=== PATIENT | male | born 1965 | race Caucasian/White ===

== ENCOUNTER 2019-06-21 11:50 | Emergency (ER) | payer OTHER, SELFPAY ==
[2019-06-21 11:52] VITALS: BP 166/99; PULSE 72; RESP 18; TEMP 36.4; O2SAT 97; BMI 43.9
--- NOTE | 2019-06-21 12:23 | EKG12_ITS ---
Test Reason : LEG PAIN Blood Pressure : / mmHG Vent. Rate : 066 BPM Atrial Rate : 066 BPM P-R Int : 170 ms QRS Dur : 096 ms QT Int : 382 ms P-R-T Axes : 035 029 025 degrees QTc Int : 400 ms Sinus rhythm with occasional Premature ventricular complexes Otherwise normal ECG Confirmed by IJEOMA DOMINGUEZ, NEGRITA ([id number]), proposal editor BRITTNY WILSON ([id number]) on 06/24/2019 11:33:32 AM Referred By: DIOR Confirmed By:NEGRITA RAPHAEL MD
--- NOTE | 2019-06-21 12:23 | RAD_ITS ---
STUDY: X-RAY CHEST REASON FOR EXAM: Male, 53 years old. Bilateral leg edema, shortness of breath TECHNIQUE: PA and lateral views of the chest. COMPARISON: None. FINDINGS: EKG leads project over the chest. Hyperexpansion of the lungs with relative hyperlucency of the left upper lung field. No airspace consolidation. There is no demonstrated pleural abnormality. Normal size heart. Normal mediastinum and artemio. Mild vascular congestion and indistinct central pulmonary vessels. Normal visualized aortic arch and descending thoracic aorta. There are diffuse degenerative changes of the visualized thoracic spine. Normal visualized ribs, clavicles, and shoulders. There is no demonstrated abnormality of the visualized soft tissue structures of the upper abdomen. RAD/Chest PA and Lateral IMPRESSION: 1. Mild vascular congestion could suggest fluid overload/early CHF. 2. Hyperinflation with hyperlucency of the left upper lung, query COPD. Electronically Signed: Kong Adams MD (Brooks) at 13:17 EST , Service support ,
[2019-06-21 12:45] LABS: Absolute Lymphocyte Count 2.14 X10^3/uL (0.83-4.51); Absolute Neutrophil Count 6.2 X10^3/uL (2.0-7.7); Basophil# 0.04 X10^3/uL; Basophil% 0.4 % (0-1); Eosinophil# 0.15 X10^3/uL; Eosinophils% 1.6 % (0-5); Hematocrit 42.3 % (40-54); Hemoglobin 14.5 g/dL (13.0-16.5); Lymphocyte # 2.14 X10^3/ul (4.0); Lymphocyte % 22.1 % (19-41); Mean Corp Hgb Conc 34.3 g/dL (32-36); Mean Corpuscular Hgb 32.4 pg (27.0-32.0); Mean Corpuscular Volume 94.6 fL (80-94); Mean Platelet Vol. 10.7 fl (6.2-12.0); Monocyte# 1.07 X10^3/uL; Monocyte% 11.1 % (0-10); NRBC Flagged by Analyzer 0 % (0-5); Neutrophil # 6.17 X10^3/uL (2.7-7.7); Neutrophil % 63.8 % (47-70); Platelet Count 158 K/mm3 (150-450); RBC Distribution Width CV 14.2 % (11.6-14.6); RBC Distribution Width SD 49.4 fl (35.1-43.9); Red Blood Count 4.47 M/mm3 (4.6-6.2); White Blood Count 9.7 K/mm3 (4.4-11.0)
[2019-06-21 12:47] VITALS: BP 124/71; PULSE 61; RESP 95; O2SAT 19
[2019-06-21 12:56] LABS: Anion Gap 7 (5-15); BUN 17 mg/dL (7-18); BUN/Creat Ratio 10.3 RATIO (10-20); Calcium,Total 9.1 mg/dL (8.5-10.1); Chloride 105 mmol/L (98-107); Creatinine, Serum 1.65 mg/dL (0.70-1.30); EST Glomerular Filtration Rate 47 mL/min (>60); Est Glom Filt Rate - Afr Amer 56 mL/min (>60); Estimated Creatinine Clearance 51.78 ml/min; Glucose 110 mg/dL (74-106); Potassium 4.2 mmol/L (3.5-5.1); Sodium Level 140 mmol/L (136-145)
--- NOTE | 2019-06-21 13:28 | ED.VIS.GEN ---
History of Present Illness Chief Complaint: Lower Extremity Injury Detail of Chief Complaint: Bilateral lower extremity edema Informant: Patient Onset: Weeks Context: Gradual Onset Current Severity: Moderate Maximum Severity: Moderate Narrative: Patient presents with swelling to both lower extremities over the past month or so. Patient does state it seemed to start with the right leg and that leg seems to be affected worse. He was seen at urgent care but they were concerned about either his kidney function or possible CHF and sent him to the emergency room. Patient states he has noted some mild redness to his right leg recently. He has not had a fever or chills. He has had no open wounds. - Past Medical History (1) Hypertension Status: Chronic (2) High cholesterol Status: Chronic (3) Asthma Status: Chronic (4) Diabetes Status: Chronic Past Medical History - Allergies and Home Meds Allergies/Adverse Reactions: Allergies Penicillins [PCN] Allergy (Verified 06/21/19 11:52) Other Primary Care Physician: Paolo Altman MD [Primary Care Provider] - 1-2 Weeks Prior records reviewed: Yes Past Medical History: - - Reviewed Smoking Status: Never smoker Review of Systems General: Denies: Chills, Fever Eyes: Denies: Visual changes - bilaterally ENT: Denies: Bilateral ear pain Cardiovascular: Denies: Chest pain, Palpitations Respiratory: Denies: Dyspnea, Cough Gastrointestinal: Denies: Abdominal pain, Nausea, Vomiting, Diarrhea Musculoskeletal: Reports: Swelling. Denies: Extremity Pain Skin: Denies: Rash Neurological: Denies: Headache Hematologic: Denies: Easy bruising, Easy bleeding Allergy: Denies: Uticaria Physical Exam Vital Signs/Narrative: Vital Signs Temp Pulse Resp BP Pulse Ox 06/21/19 12:47 61 95 H 124/71 H 19 06/21/19 11:52 97.5 F L 72 18 166/99 H 97 Inital Vital Signs reviewed: Yes General: Well nourished, Well developed Head: Normocephalic ENT: Moist mucous membranes Neck: Supple Cardiovascular: Regular rate, Regular rhythm Respiratory: No distress, CTA bilaterally Abdomen: Soft, Nontender, Nondistended Extremities: - - 3-4+ edema bilateral lower extremities. There is some mild skin erythema to the right leg but no warmth to touch. This is more consistent with lymphedema changes. Neurological: Alert, Oriented x3 Psychological: Normal affect Diagnostic/Tx/Re-eval Impressions Chest X-Ray 06/21/19 12:23 IMPRESSION: 1. Mild vascular congestion could suggest fluid overload/early CHF. 2. Hyperinflation with hyperlucency of the left upper lung, query COPD. Electronically Signed: Kong Adams MD (Brooks) at 13:17 EST , Service support , 06/21/19 12:23 Chest PA and Lateral [RAD] Stat Laboratory Results 06/21/19 06/21/19 12:35 12:35 WBC 9.7 RBC 4.47 L Hgb 14.5 Hct 42.3 MCV 94.6 H MCH 32.4 H MCHC 34.3 RDW Std Deviation 49.4 H RDW Coeff of Gus 14.2 Plt Count 158 MPV 10.7 Immature Gran % (Auto) 1.000 H Neut % (Auto) 63.8 Lymph % (Auto) 22.1 [place] % (Auto) 11.1 H Eos % (Auto) 1.6 Baso % (Auto) 0.4 Absolute Neuts (auto) 6.2 Absolute Lymphs (auto) 2.14 Nucleated RBC % 0 Sodium 140 Potassium 4.2 Chloride 105 Carbon Dioxide 28.0 Anion Gap 7 BUN 17 Creatinine 1.65 H Estim Creat Clear Calc 51.78 Est GFR (MDRD) Af Amer 56 L Est GFR (MDRD) Non-Af 47 L BUN/Creatinine Ratio 10.3 Glucose 110 H Calcium 9.1 - EKG Initial EKG Interpretation: Sinus Rhythm - Sinus at 66 with single PVC. No acute ST change. - Medical Decision Making Test results are discussed with the patient. His creatinine is elevated, but was 1.78 in November. This appears to be his baseline. I was unable to obtain a BTM P as the machine is down this weekend. I will treat the patient with a 5-day course of Lasix. Ortiz wraps were applied to both legs with light compression. ED Disposition - Plan for ED Patient: Disposition: Home or Assisted Living Diagnosis: Edema Instructions: Lymphedema Prescriptions: Furosemide [Lasix] 40 mg PO DAILY #5 tab Prescription Printed Referrals: Paolo Altman MD [Primary Care Provider] - 1-2 Weeks
[2019-06-21 13:42] VITALS: BP 128/78; PULSE 62; RESP 18
== END 2019-06-21 13:44 | disposition home or self-care (01) ==
PROVIDERS: Emergency Provider Emergency Medicine; Family Provider Family Medicine; PCP Family Medicine
DX: R60.0 Localized edema (principal); I10 Essential (primary) hypertension; J45.909 Unspecified asthma, uncomplicated; E11.9 Type 2 diabetes mellitus without complications; Z79.84 Long term (current) use of oral hypoglycemic drugs
CPT/HCPCS: 71046; 80048; 85025; 93005; 99283; A4216

== ENCOUNTER 2020-06-28 | Emergency (ER) | payer OTHER, SELFPAY ==
[2020-06-28] VITALS: BP 164/121; PULSE 67; RESP 30; TEMP 36; O2SAT 95; BMI 39.9
--- NOTE | 2020-06-28 00:12 | CT_ITS ---
STUDY: CT ABDOMEN AND PELVIS WITH CONTRAST REASON FOR EXAM: Male, 54 years old. LOWER ABD PAIN WITH DIARRHEA X 2 DAYS, ABD PAIN INCREASING, + COVID, HX DIAB, KD, HTN RADIATION DOSAGE (If Supplied By Facility): CTDIvol = ( 25.66 ) mGy, DLP = ( 2555.30 ) mGycm TECHNIQUE: Transaxial images were obtained from the dome of the diaphragm to the symphysis pubis without oral contrast. Oral and amp; IV Gastrografin and amp; 100mL Isovue-370 was administered. Sagittal and coronal images were reconstructed. Individualized dose optimization techniques were used for this CT. COMPARISON: June 21, 2019 chest x-ray FINDINGS: There are visualized multifocal patchy groundglass opacities in the visualized lung bases. The visualized portions of the heart are within normal limits. The liver is mildly enlarged fatty infiltrated. Within the left hepatic lobe there is a low attenuating cystic structure measuring 1.3 cm. Normal gallbladder and extrahepatic biliary system. There is [id number] splenomegaly. Normal pancreas. Normal bilateral adrenal glands. There are small cysts in the right kidney the largest of which measures 2.7 x 2.6 cm with benign features. There are left renal cyst at least 2 the largest of which is in the lower pole measuring 5.7 x 5.9 cm with Hounsfield units in the range of simple fluid. Normal visualized stomach. Normal small intestine. There are air-fluid levels within the colon with minimal distention. There is diverticulosis without diverticulitis. The appendix is visualized and appears normal. The aorta is partially calcified. Normal inferior vena cava. Normal retroperitoneum. Normal urinary bladder. There are prostatic calcifications. Normal abdominal wall. There are diffuse degenerative changes of the visualized lumbar spine. CT/Abdomen/Pelvis WITH Contrast IMPRESSION: Multifocal patchy groundglass opacities within the lung bases highly consistent with a pattern typical of Covid pneumonia. Air-fluid levels within the colon compatible with the diarrhea-type illness gastroenteritis. No obstruction. Diverticulosis no diverticulitis. No evidence of appendicitis. Bilateral benign-appearing renal cysts. Benign-appearing hepatic cysts mild hepatic enlargement. Mild splenomegaly. Evidence of old granulomatous disease. Electronically Signed: Rosemary Liu MD at 2:33 EST Tel , Service support ,
--- NOTE | 2020-06-28 00:12 | ED.VISSUMM ---
- ER Visit Summary Date of Service: 06/28/20 Chief Complaint: [Abdominal pain] History of Present Illness: The patient is a 54 M resents to the emergency department with complaint of abdominal pain that started 2 days ago. Patient states the pains been continuous and describes in the lower abdomen. He rates it currently an 8 out of 10. Pain is dull and achy. He has had no nausea or vomiting. He has had some mild diarrhea. Denies any blood in his stool or black tarry stool. Denies any chest pain. He is not had a fever since being diagnosed with COVID-19 on 18 June. Patient states that he waited a couple of days after diagnosis and then was hospitalized at [facility] for 5 days. Patient does describe some shortness of breath with activity however that seems to be chronic. Minimal cough. Patient's had no prior abdominal surgeries. He does have history of asthma, high cholesterol, diabetes, and hypertension. [Patient denies urinary symptoms.] Patient states that while admitted to the hospital he was on antibiotics but did not get sent home on antibiotics. Physical Examination: [HEENT-PERRLA, EOMI. Cranial nerves II through XII grossly intact. TMs clear. Mucous membranes moist. No adenopathy. Cardiovascular-regular rate and rhythm without murmur or ectopy Lungs-clear to auscultation, chest wall stable without crepitus or subcu emphysema Abdomen-normoactive bowel sounds, soft. Patient has tenderness palpation over the right lower quadrant as well as the suprapubic region and left lower quadrant. There is no rebound, rigidity, or peritoneal signs.. Extremities-intact ?4, normal range of motion, normal pulses, atraumatic] Test Results: [CBC with differential showed a white count 13.1, hemoglobin 16, hematocrit 49, platelets 229. Chemistries unremarkable. BUN was [address] scan of the abdomen pelvis with IV and p.o. contrast obtained showed Covid like pneumonia in the bases of both lungs and patient had fluid throughout the colon consistent with diarrheal type illness. Patient unable to give a stool sample in the department. Urinalysis obtained] Emergency Department Course and Treatment: [The line established. Patient was given morphine and Zofran. He felt improved.] Treatment Plan: [Patient will be given a prescription to bring a stool sample in for culture and C. difficile.] Disposition: [Discharged home in stable condition] Impression: [COVID-19 illness Abdominal pain Diarrhea] This note was generated with [employer] dictation software. It may contain incorrect words, spelling, and punctuation that were not noted in review of the chart prior to signing ED Disposition - Plan for ED Patient: Referrals: Paolo Altman MD [Primary Care Provider] -
[2020-06-28 00:46] VITALS: BP 141/88; PULSE 77; RESP 19; TEMP 36; O2SAT 95
[2020-06-28] MEDS: 0.9% Normal Saline 1,000 ML 125 ML IV (00:53)
[2020-06-28] MEDS: Ondansetron 4 MG/2 ML Vial IV (00:54)
[2020-06-28 01:03] VITALS: BP 146/91; PULSE 85; RESP 18; TEMP 36.7; O2SAT 97
[2020-06-28 01:04] LABS: Hematocrit 49.6 % (40-54); Hemoglobin 16.4 g/dL (13.0-16.5); Mean Corp Hgb Conc 33.1 g/dL (32-36); Mean Corpuscular Hgb 30.7 pg (27.0-32.0); Mean Corpuscular Volume 92.7 fL (80-94); Mean Platelet Vol. 11.2 fl (6.2-12.0); POSITIVE COUNT YES; POSITIVE DIFFERENTIAL YES; POSITIVE MORPHOLOGY YES; Platelet Count 229 K/mm3 (150-450); RBC Distribution Width CV 14.1 % (11.6-14.6); RBC Distribution Width SD 47.9 fl (35.1-43.9); Red Blood Count 5.35 M/mm3 (4.6-6.2); White Blood Count 13.1 K/mm3 (4.4-11.0)
[2020-06-28 01:07] LABS: Differential Indicated MANUAL DIFF
[2020-06-28 01:21] LABS: ALB/GLOB Ratio 0.8 RATIO (0.9-2.4); AST(SGOT) 23 U/L (15-37); Alanine Aminotransfer ALT/SGPT 53 U/L (16-61); Alkaline Phosphatase 72 U/L (45-117); Anion Gap 9 (5-15); BUN 21 mg/dL (7-18); BUN/Creat Ratio 12.6 RATIO (10-20); Calcium,Total 8.8 mg/dL (8.5-10.1); Chloride 108 mmol/L (98-107); Creatinine, Serum 1.67 mg/dL (0.70-1.30); EST Glomerular Filtration Rate 46 mL/min (>60); Est Glom Filt Rate - Afr Amer 55 mL/min (>60); Estimated Creatinine Clearance 50.57 ml/min; Glucose 105 mg/dL (74-106); Potassium 3.7 mmol/L (3.5-5.1); Sodium Level 143 mmol/L (136-145)
[2020-06-28 01:24] LABS: Lymphocyte 13 % (19-41); Metamyelocyte 5 % (0-1); Monocyte 12 % (0-10); Neutrophil-Band 4 % (0-5); Neutrophil-Segmented 66 % (47-70); Total Cells Counted 100 (MANUAL DIFF)
[2020-06-28 01:25] LABS: Absolute Neutrophil Count 9.2 X10^3/uL (2.0-7.7); Platelet Estimate ADEQUATE (ADEQ); Red Cell Morphology NORM C+C NORMAL (NORM C&C)
[2020-06-28 01:30] LABS: Lactic Acid 1.5 mmol/L (0.4-1.9)
[2020-06-28 02:03] VITALS: BP 169/111; PULSE 79; RESP 17; TEMP 36.8; O2SAT 92
[2020-06-28] MEDS: Morphine 4 MG/ML Syringe IV (02:48)
[2020-06-28 03:00] LABS: Bacteria 0 SEEN /hpf (None Seen); Mucous, Urine 0 SEEN /hpf (<or=2+); Squamous Epithelial Cells - UA 0 SEEN /hpf (0-5); White Blood Cells 0 SEEN /hpf (0-5)
[2020-06-28 03:03] LABS: Color, Urine Yellow (Yellow); Glucose, Dipstick Normal (Normal); Ketone-Dipstick Negative (Negative); Leukocyte Esterase-Dipstick Negative /ul (Negative); Nitrite-Dipstick Negative (Negative); Occult Blood-Urine 10 /ul (Negative); Protein-Dipstick 30 mg/dl (Negative); Urine Bilirubin Dipstick Negative (Negative); Urine Clarity Clear (Clear); Urine Urobilinogen Normal (Normal)
--- NOTE | 2020-06-28 03:06 | ED.DEP ---
ED Disposition - Plan for ED Patient: Instructions: ED Unknown Causes of Abdominal Pain Male, ED Viral Syndrome Prescriptions: Hydrocodone Bitart/Apap 5-325 [Schurz 5MG-325MG] 1 tab PO Q4H PRN PRN 2 Days #10 tab PRN Reason: Pain Prescription Printed Ondansetron [Zofran Odt] 4 mg PO Q8H PRN PRN #10 tab PRN Reason: Nausea Prescription Printed Referrals: Paolo Altman MD [Primary Care Provider] - 3-5 Days
[2020-06-28 03:09] LABS: Red Blood Cells-Urine 0-5 SEEN /hpf (0-5)
[2020-06-28 03:34] VITALS: BP 145/90; PULSE 89; RESP 17; TEMP 37; O2SAT 94
[2020-06-28 13:43] LABS: Pathologist Review Reviewed
== END 2020-06-28 04:25 | disposition home or self-care (01) ==
LOC: ED 01:11
PROVIDERS: Emergency Provider Emergency Medicine; PCP Family Medicine
DX: U07.1 COVID-19 (principal); R10.30 Lower abdominal pain, unspecified; R19.7 Diarrhea, unspecified
CPT/HCPCS: 74177; 80053; 81001; 83605; 85025; 96374; 96375; 99283; J7030; Q9967; A4216; J2405

== ENCOUNTER 2021-10-31 23:13 | Inpatient (IN) | payer OTHER, SELFPAY ==
[2021-10-31 23:13] VITALS: BP 170/134; PULSE 124; RESP 24; TEMP 36.1; O2SAT 100; BMI 41.0
[2021-10-31 23:34] VITALS: BP 105/93; PULSE 99; RESP 18; O2SAT 95
--- NOTE | 2021-10-31 23:47 | EKG12_ITS ---
Test Reason : SOB Blood Pressure : / mmHG Vent. Rate : 117 BPM Atrial Rate : 102 BPM P-R Int : 000 ms QRS Dur : 090 ms QT Int : 312 ms P-R-T Axes : 000 034 026 degrees QTc Int : 435 ms Atrial fibrillation Abnormal ECG Confirmed by IJEOMA DOMINGUEZ, NEGRITA ([id number]), publication editor ROSY DENNIS ([id number]) on 11/01/2021 10:40:48 AM Referred By: SERGE Confirmed By:NEGRITA RAPHAEL MD
--- NOTE | 2021-10-31 23:49 | EDS_ITS ---
HPI History of Present Illness Chief Complaint: Shortness of Breath Informant: patient Onset/Context/Timing Onset: Weeks (1 week) Context: Gradual Onset Timing: Waxes and wanes Current Severity: Mild Maximum Severity: Moderate Narrative Narrative: Patient presents secondary to shortness of breath with exertion for the past week. Patient states with heavy exertion in the past to become winded. He states now with any simple exertion such as getting in or out of his car he becomes quite short of breath. He reports some slight chest tightness with exertion. He denies fever or chills. No significant cough. He reports some chronic swelling in his legs it does not seem to be any worse than baseline. He denies known history of CHF or COPD. PFSH PFSH Medical History Diabetes Hyperlipidemia Hypertension Kidney disease Smoker Home Medications Lisinopril 40 mg PO/SL DAILY 06/21/19 [History Last Taken Unknown] Metoprolol Tartrate 200 mg PO/SL DAILY 06/21/19 [History Last Taken Unknown] amlodipine 10 mg PO DAILY 10/31/21 [History Last Taken Unknown] colchicine 0.6 mg PO DAILY 10/31/21 [History Last Taken Unknown] Allergy/AdvReac Type Severity Reaction Status Date / Time Penicillins [PCN] Allergy Other Verified 10/31/21 23:28 Social History Smoking Status: Current every day smoker tobacco type: e-cigarettes ROS ROS ED Constitutional Constitutional ED: Denies chills or fever(s) Eyes Eyes: Denies change in vision ENT ENT ED: Denies sore throat Cardiovascular Cardiovascular: Reports chest pain Respiratory/Chest Respiratory/Chest: Reports dyspnea; Denies cough Gastrointestinal Gastrointestinal: Denies abdominal pain, diarrhea, nausea or vomiting Genitourinary Genitourinary ED: Denies dysuria Musculoskeletal Musculoskeletal: Denies back pain or neck pain Integumentary Denies rash Neurologic Neurologic: Denies headache(s) or weakness Allergic/Immunologic Allergic/Immunologic ED: Denies urticaria EXAM Physical Exam Const Vital Signs: 10/31/21 23:13 10/31/21 23:31 10/31/21 23:34 Temperature 97 F L Temperature Source Temporal Pulse Rate 124 H 99 Respiratory Rate 24 H 18 Respiratory Effort Short of Breath Respiratory Depth Shallow Respiratory Pattern Tachypnea Blood Pressure 170/134 H 105/93 H Blood Pressure Mean 146 97 Pulse Ox 100 95 Oxygen Delivery Method Room Air Room Air Room Air 11/01/21 00:13 Temperature Temperature Source Pulse Rate 119 H Respiratory Rate 22 H Respiratory Effort Respiratory Depth Respiratory Pattern Blood Pressure 139/113 H Blood Pressure Mean 121 Pulse Ox 95 Oxygen Delivery Method Positive obese Nutritional Appearance: obese HEENT Reports moist mucous membranes Eyes PERRL and EOMs intact bilaterally Neck supple Chest Wall inspection of chest normal and palpation of chest normal Resp normal respiratory effort and clear to auscultation bilaterally Cardio regular rate and regular rhythm GI non-tender Palpation: soft Extremity Extremity Narrative: 2+ bilateral lower extremity edema, symmetric General Extremety ED: Yes edema General Extremity: edema Neuro oriented x3 Sensorium / Orientation: alert Psych mental status grossly normal Skin no rashes or lesions noted MDM MDM MDM Narrative Medical decision making narrative: EKG, chest x-ray, lab work obtained. Lab Data Attestation: I reviewed the patient's lab results. Labs: Laboratory Results - last 24 hr 11/01/21 11/01/21 11/01/21 00:03 00:03 00:03 WBC 11.6 H RBC 4.70 Hgb 14.6 Hct 44.1 MCV 93.8 MCH 31.1 MCHC 33.1 RDW Std Deviation 45.6 H RDW Coeff of Gus 13.3 Plt Count 184 MPV 12.5 H Immature Gran % (Auto) 0.600 Neut % (Auto) 79.1 H Lymph % (Auto) 12.5 L [place] % (Auto) 7.1 Eos % (Auto) 0.3 Baso % (Auto) 0.4 Absolute Neuts (auto) 9.2 H Absolute Lymphs (auto) 1.45 Nucleated RBC % 0 Sodium 140 Potassium 4.5 Chloride 106 Carbon Dioxide 25.0 Anion Gap 9 BUN 43 H Creatinine 2.41 H Estim Creat Clear Calc 33.11 Est GFR (MDRD) Af Amer 36 L Est GFR (MDRD) Non-Af 30 L BUN/Creatinine Ratio 17.8 Glucose 263 H Calcium 8.6 Total Bilirubin 0.30 Direct Bilirubin 0.13 AST 15 ALT 34 Alkaline Phosphatase 73 Troponin I High Sens 50 B-Natriuretic Peptide 253.5 H Total Protein 6.8 Albumin 3.4 Globulin 3.4 Radiography Chest X-Ray - ED: 1 View, Read by ED Physician, Chronic Changes and CHF (Mild CHF) EKG Initial EKG: Attestation: I personally reviewed and interpreted this EKG as follows: Interpretation: Atrial Fibrillation (Atrial fibrillation at 117. No acute ST change.) Treatment and Re-Evaluation Narrative: Chest x-ray per my interpretation reveals chronic changes with mild CHF. EKG reveals new onset atrial fibrillation. Heart rate in the room is between 110 and 125. Lab work reviewed and remarkable for worsened renal function. Creatinine today is 2.41. Glucose is 263. Troponin is 50 and BNP is 253. Test results discussed with the patient at bedside. He will be given subcu heparin in light of his renal disease. He will receive 10 mg of IV Cardizem for rate control. I will speak with hospitalist regarding admission. Discharge Plan Triage Chief Complaint: Shortness of Breath Other Complaint: Cough ED Provider: Hollie Coronado Dx/Rx/DC Orders Clinical Impression: Atrial fibrillation, new onset, Atrial fibrillation with rapid ventricular response, CHF (congestive heart failure) Prescriptions: No Action Lisinopril 40 mg PO/SL DAILY RF: 0 Metoprolol Tartrate 200 mg PO/SL DAILY RF: 0 amlodipine 10 mg tablet 10 mg PO DAILY RF: 0 colchicine 0.6 mg tablet 0.6 mg PO DAILY RF: 0 Primary Care Provider: Paolo Altman Referrals: Paolo Altman MD [Primary Care Provider] - Disposition Disposition: Acute Care Hospital [facility]
[2021-11-01] VITALS (12 sets, daily range): BP systolic 122–151; BP diastolic 89–114; PULSE 89–142; RESP 16–26; TEMP 36.3–37; O2SAT 94–96; BMI 42.8
--- NOTE | 2021-11-01 | RAD_ITS ---
HISTORY: sob EXAMINATION/TECHNIQUE: XR Chest 1 View: Portable upright AP chest x-ray COMPARISON: 06/21/19 FINDINGS: LINES/DEVICES: None. LUNGS: Hazy bibasilar airspace opacities without consolidation or pleural effusion. No pneumothorax. MEDIASTINUM AND CARDIOVASCULAR STRUCTURES: Cardiac silhouette not enlarged. Central airways and mediastinal contour are unremarkable for degree of rotation. BONES AND SOFT TISSUES: No acute bony abnormalities. RAD/Chest 1 View (Portable) IMPRESSION: Hazy bibasilar airspace disease suspicious for pneumonia. Recommend short-term follow-up to resolution. at 0042 Reported and signed by: Ibrahima Vaughn MD Electronically Signed: Ibrahima Vaughn MD at 0:41 EDT ,
[2021-11-01 00:08] LABS: Absolute Lymphocyte Count 1.45 X10^3/uL (0.83-4.51); Absolute Neutrophil Count 9.2 X10^3/uL (2.0-7.7); Basophil# 0.05 X10^3/uL; Basophil% 0.4 % (0-1); Eosinophil# 0.04 X10^3/uL; Eosinophils% 0.3 % (0-5); Hematocrit 44.1 % (40-54); Hemoglobin 14.6 g/dL (13.0-16.5); Lymphocyte # 1.45 X10^3/ul (0.83-4.51); Lymphocyte % 12.5 % (19-41); Mean Corp Hgb Conc 33.1 g/dL (32-36); Mean Corpuscular Hgb 31.1 pg (27.0-32.0); Mean Corpuscular Volume 93.8 fL (80-94); Mean Platelet Vol. 12.5 fl (6.2-12.0); Monocyte# 0.83 X10^3/uL; Monocyte% 7.1 % (0-10); NRBC Flagged by Analyzer 0 % (0-5); Neutrophil # 9.17 X10^3/uL (2.7-7.7); Neutrophil % 79.1 % (47-70); Platelet Count 184 K/mm3 (150-450); RBC Distribution Width CV 13.3 % (11.6-14.6); RBC Distribution Width SD 45.6 fl (35.1-43.9); White Blood Count 11.6 K/mm3 (4.4-11.0)
[2021-11-01 00:30] LABS: AST(SGOT) 15 U/L (15-37); Alanine Aminotransfer ALT/SGPT 34 U/L (16-61); Albumin, Serum 3.4 g/dL (3.2-5.0); Alkaline Phosphatase 73 U/L (45-117); Anion Gap 9 (5-15); BUN 43 mg/dL (7-18); BUN/Creat Ratio 17.8 RATIO (10-20); Bilirubin, Direct 0.13 mg/dL (0.00-0.30); Calcium,Total 8.6 mg/dL (8.5-10.1); Chloride 106 mmol/L (98-107); Creatinine, Serum 2.41 mg/dL (0.70-1.30); EST Glomerular Filtration Rate 30 mL/min (>60); Est Glom Filt Rate - Afr Amer 36 mL/min (>60); Estimated Creatinine Clearance 33.11 ml/min; Globulin 3.4 g/dL (2.2-4.2); Glucose 263 mg/dL (74-106); Potassium 4.5 mmol/L (3.5-5.1); Protein, Total 6.8 g/dL (6.4-8.2); Sodium Level 140 mmol/L (136-145); Troponin-I HS 50 pg/mL (3.0-78.0)
[2021-11-01 00:34] LABS: BNP,B-Type NATRIURETIC PEPTIDE 253.5 pg/mL (0-100)
[2021-11-01] MEDS: dilTIAZem 25 MG/5 ML Vial 10 MG IV BOLUS (00:46)
[2021-11-01] MEDS: Heparin Injection (Vial) 5,000 UNIT/ML VIAL 5000 UNIT SC (00:46)
--- NOTE | 2021-11-01 01:05 | HP.PCM.HOS_ITS ---
[facility] - General General Date of Admission: 11/01/21 HPI Narrative SILVANA ONRIEGA, is a 56 M with a significant history of stage III kidney disease; gout; hypertension; diabetes mellitus and hyperlipidemia who presents to emergency department with 1 week history of progressively worsening shortness of breath. His shortness of breath is at rest and it increases markedly with exertion. He report that he has always had some shortness of breath but in the past week his shortness of breath has been more noticeable. He report that about 2 years ago he had a work-up for shortness of breath and a work-up was unrevealing. [facility] Medical History Diabetes Hyperlipidemia Hypertension Kidney disease Smoker Home Medications Lisinopril 40 mg PO/SL DAILY 06/21/19 [History Last Taken Unknown] Metoprolol Tartrate 200 mg PO/SL DAILY 06/21/19 [History Last Taken Unknown] amlodipine 10 mg PO DAILY 10/31/21 [History Last Taken Unknown] colchicine 0.6 mg PO QODAY 10/31/21 [History Last Taken 10/31/21 22:30] Allergy/AdvReac Type Severity Reaction Status Date / Time Penicillins [PCN] Allergy Other Verified 10/31/21 23:28 Family History Other Heart disease Surgical History History of carpal tunnel surgery Social History Smoking Status: Current every day smoker tobacco type: e-cigarettes ROS ROS Narrative Constitutional: Reports fatigue. Denies change in weight. Eyes: Denies blurry vision, change in eye color, change in vision, discharge from eye(s), double vision, erythema, eye pain, loss of vision or other HEENT: Denies abnormal hearing, dysphagia, ear pain, epistaxis, headache(s), hearing loss, nasal congestion, nasal discharge, post nasal drip, sinus pressure, sore throat or other Cardiovascular: Reports chest pressure. Reports dyspnea on exertion and orthopnea. Denies paroxysmal nocturnal dyspnea. Reports chronic swelling in bilateral lower legs Respiratory/Chest: Denies cough, excessive phlegm production, shortness of breath with exertion and wheezing Gastrointestinal: Denies abdominal pain, coffee ground emesis, constipation, diarrhea, dyspepsia, hematemesis, hematochezia, loose stools, melena, nausea, vomiting or other Genitourinary: Denies burning urination, difficulty urinating, dysuria, hematur ia, nocturia, urinary frequency, urinary hesitancy, urinary incontinence, urinary urgency or other Musculoskeletal: Denies arthralgias, back pain, joint pain, joint stiffness, joint swelling, myalgias, neck pain or other Neurologic: Denies abnormal gait, abnormal speech, confusion, disequilibrium, dizziness, focal weakness, headache(s), numbness, paresthesias, seizure-like activity, seizures, syncope, tingling, tremor(s) or other Psychiatric: Denies anxiety, depression, homicidal ideation, suicidal ideation or other Endocrinology: Denies change in body appearance, cold intolerance, excessive sweating, heat intolerance, polydipsia, polyuria or other Hematologic/Lymphatic: Denies anemia, easy bleeding, easy bruising, lymphadenopathy or other Integumentary: Denies rashes Allergic/Immunologic: Denies rhinitis, hives, eczema, or other Vital Signs Vital Signs Vital Signs: 10/31/21 23:13 10/31/21 23:31 10/31/21 23:34 Temperature 97 F L Temperature Source Temporal Pulse Rate 124 H 99 Respiratory Rate 24 H 18 Respiratory Effort Short of Breath Respiratory Depth Shallow Respiratory Pattern Tachypnea Blood Pressure 170/134 H 105/93 H Blood Pressure Mean 146 97 Pulse Ox 100 95 Oxygen Delivery Method Room Air Room Air Room Air 11/01/21 00:13 11/01/21 00:49 Temperature Temperature Source Pulse Rate 119 H 135 H Respiratory Rate 22 H 19 H Respiratory Effort Respiratory Depth Respiratory Pattern Blood Pressure 139/113 H 140/102 H Blood Pressure Mean 121 114 Pulse Ox 95 95 Oxygen Delivery Method Room Air Weight Weight: 122.47 kg Body Mass Index (BMI) 41.0 Physical Exam Narrative Physical exam: General: Well-nourished, well-developed. Head: Normocephalic, atraumatic, no tenderness Eyes: Vision is grossly intact. EOMI ENT, no trauma, moist mucous membranes, no rhinorrhea Neck: Nontender, full range of motion, no spinal tenderness, deformities, step- off CVS: Irregularly irregular rate and rhythm. S1-S2 present. No murmur, gallop or rub. Respiratory : Mild diminished lung sounds Chest wall nontender, no wheezing Abdomen: Soft, nontender, nondistended, normal bowel sounds, no masses : Deferred Back: Nontender, no CVA tenderness, no midline spinal tenderness, deformities, step-offs Extremities: +1 bilateral pitting edema. Nontender full range of motion, no trauma Skin: Normal color, no trauma, abrasions Neuro: Alert, oriented, cranial nerves II through XII grossly intact. Psychiatry: Normal mood. Normal affect. Not depressed. Not anxious. Results Lab / Micro Data Result Diagrams: 11/01/21 00:03 11/01/21 00:03 Labs: Laboratory Results - last 24 hr 11/01/21 00:03: WBC 11.6 H, RBC 4.70, Hgb 14.6, Hct 44.1, MCV 93.8, MCH 31.1, MCHC 33.1, RDW Std Deviation 45.6 H, RDW Coeff of Gus 13.3, Plt Count 184, MPV 12.5 H, Immature Gran % (Auto) 0.600, Neut % (Auto) 79.1 H, Lymph % (Auto) 12.5 L, [place] % (Auto) 7.1, Eos % (Auto) 0.3, Baso % (Auto) 0.4, Absolute Neuts (auto) 9.2 H, Absolute Lymphs (auto) 1.45, Nucleated RBC % 0 11/01/21 00:03: Sodium 140, Potassium 4.5, Chloride 106, Carbon Dioxide 25.0, Anion Gap 9, BUN 43 H, Creatinine 2.41 H, Estim Creat Clear Calc 33.11, Est GFR (MDRD) Af Amer 36 L, Est GFR (MDRD) Non-Af 30 L, BUN/Creatinine Ratio 17.8, Glucose 263 H, Calcium 8.6, Total Bilirubin 0.30, Direct Bilirubin 0.13, AST 15, ALT 34, Alkaline Phosphatase 73, Troponin I High Sens 50, Total Protein 6.8, Albumin 3.4, Globulin 3.4 11/01/21 00:03: B-Natriuretic Peptide 253.5 H Micro: Microbiology 11/01/21 00:10 Nasal Secretion SARS-CoV-2 Antigen (Rapid) - Final Radiology Impression Chest X-Ray 11/01/21 00:00 IMPRESSION: Hazy bibasilar airspace disease suspicious for pneumonia. Recommend short-term follow-up to resolution. at 0042 Reported and signed by: Ibrahima Vaughn MD Electronically Signed: Ibrahima Vaughn MD at 0:41 EDT Reading Location ID and State: [facility] / [place] Tel , Service support , Assessment & Plan Assessment/Plan (1) Afib: QUALIFIERS: Atrial fibrillation type: unspecified chronic Qualified Code(s): I48.20 - Chronic atrial fibrillation, unspecified (2) ROSHAN (acute kidney injury): (3) Diabetes: QUALIFIERS: Chronic kidney disease stage: stage 3 (moderate) Chronic kidney disease stage 3 subtype: stage 3a (GFR 45-59) Diabetes mellitus complication detail: with chronic kidney disease Diabetes mellitus complication status: with kidney complications Diabetes mellitus halfway insulin use: without halfway use Diabetes mellitus type: type 2 Qualified Code(s): E11.22 - Type 2 diabetes mellitus with diabetic chronic kidney disease; N18.31 - Chronic kidney disease, stage 3a PLAN: A. fib with RVR EKG tracing visualized and independently interpreted showed A. fib with RVR. Obtain echo [id number] 2 score at least 2 points (hypertension; diabetes) Because of worsening kidney function Heparin subcutaneous was chosen as anticoagulation of choice at the ED. Lovenox 1 mg per kilogram subcutaneous daily ordered Potassium level at the ED was 4.5. Will check magnesium Chest x-ray was visualized and independently interpreted. Chest x-ray showed bilateral haziness.. Chest x-ray on 06/21/2019 was also visualized. Current chest x-ray shows more haziness compared to previous. Rapid Covid screen on presentation was negative. Received Cardizem IV push in the emergency department. Patient takes metoprolol 200 mg p.o. daily. He reports compliance with occasional forgetfulness. Reports compliance with home metoprolol for at least the past 2 days. Escalate metoprolol Po to 200 mg twice daily. PRN metoprolol IV ordered for heart rate more than 110. Heart failure His BNP is elevated at 253.5 in the setting of obesity and end-stage renal disease. ROSHAN on chronic kidney disease stage III His creatinine on presentation was 2.41. His creatinine on 06/28/2022 1.67; and 06/21/2019 his was 1.65. CKD Likely from Diabetic nephropathy ROSHAN could be from fluid overload secondary to A. fib. Lasix 40 mg IV x1 ordered. Hold lisinopril. Trend BMP. Elevated BNP Etiology could be secondary to heart failure; ROSHAN or other. Echocardiogram ordered. Diabetes mellitus Patient with hyperglycemia on presentation Reported that he was on glimepiride 4 mg but ran out about 4 to 5 months ago. Check A1c. Accu-Chek QA [facility] with correction scale insulin ordered. Hypertension Blood pressure is not within goal Metoprolol tartrate p.o. escalated as above. Continue amlodipine. Lisinopril held secondary ROSHAN. Trend blood pressure and adjust blood pressure medications. Tobacco abuse Vapes. Counseled BMI: 42.9 kg/m?. Complicates care. Lifestyle modification recommended. Gout Takes colchicine every other day. Hold for now secondary to ROSHAN. DVT prophylaxis: Not indicated since patient has been started on therapeutic dose of anticoagulation for A. fib. Charges/Coding Visit Charges Inpatient E&M: 45155 Init Hosp L3
--- NOTE | 2021-11-01 01:47 | ECHOCS_ITS ---
Reason For Study: AFIB/FLUTTER ([place]) Procedure This was a 2D Doppler, Color Flow transthoracic echocardiogram. The study was technically difficult. Due to body habitus. Contrast injection was performed. Exam performed portable in patient room. Left Ventricle The estimated ejection fraction is 50-55 %. Unable to assess diastolic dysfunction. No regional wall motion abnormalities noted. Right Ventricle Normal RV size. Normal systolic function. Atria The left atrium is mildly enlarged. Normal right atrium. No doppler evidence for ASD. Mitral Valve There is no mitral valve stenosis. Trivial mitral valve insufficiency. Tricuspid Valve There is no tricuspid stenosis. Trivial tricuspid valve insufficiency. Pulmonary artery systolic pressure is 35 mmHg. Aortic Valve Trisinus/trileaflet aortic valve. There is no aortic stenosis. No aortic valve insufficiency. Pulmonic Valve There is no pulmonic valvular stenosis. No pulmonic valve insufficiency. Great Vessels Normal aortic root. Pericardium/Pleural No pericardial effusion. Medication Diluted definity 4.0ml given slow IV push to enhance endocardial definition. MMode/2D Measurements & Calculations LVIDd: 5.4 cm IVSd: 1.1 cm Ao root diam: 3.0 cm LVIDs: 5.0 cm LVPWd: 1.1 cm RVDd: 3.7 cm FS: 7.1 % LAV(MOD-bp): 89.5 ml LA A4 area: 26.2 cm2 LA dimension(2D): 3.7 cm LAV(MOD-bp) Indexed: 37.9 ml/m2 LAV(MOD-sp2): 91.2 ml LAV(MOD-sp4): 85.2 ml RA A4 area: 25.2 cm2 Doppler Measurements & Calculations MV E max ileana: 104.3 cm/sec Ao V2 max: 75.4 cm/sec LV V1 max: 71.3 cm/sec Ao max P.3 mmHg LV V1 max P.0 mmHg MR max ileana: 459.0 cm/sec PA V2 max: 67.2 cm/sec TR max ileana: 259.8 cm/sec MR max P.3 mmHg TR max P.0 mmHg ECHO/Echo Complete W/ Contrast Interpretation Summary Technically difficult study. The estimated ejection fraction is 50-55 %. The left atrium is mildly enlarged. Trivial mitral valve insufficiency. Ordering Physician: Sergio Altamirano Referring Physician: Paolo Altman Performed By: Shayy Velazquez, ADOLFO, RVT
[2021-11-01] MEDS: Furosemide 20 MG/2 ML VIAL 40 MG IV (02:10)
[2021-11-01] MEDS: 0.9% Saline Lock 10 ML Syringe IV (02:10)
[2021-11-01 05:43] LABS: Absolute Lymphocyte Count 2.26 X10^3/uL (0.83-4.51); Absolute Neutrophil Count 8.5 X10^3/uL (2.0-7.7); Basophil# 0.05 X10^3/uL; Basophil% 0.4 % (0-1); Eosinophil# 0.01 X10^3/uL; Eosinophils% 0.1 % (0-5); Hematocrit 44.7 % (40-54); Hemoglobin 14.6 g/dL (13.0-16.5); Lymphocyte # 2.26 X10^3/ul (0.83-4.51); Lymphocyte % 19.4 % (19-41); Mean Corp Hgb Conc 32.7 g/dL (32-36); Mean Corpuscular Hgb 30.6 pg (27.0-32.0); Mean Corpuscular Volume 93.7 fL (80-94); Mean Platelet Vol. 12.8 fl (6.2-12.0); Monocyte% 6.9 % (0-10); NRBC Flagged by Analyzer 0 % (0-5); Neutrophil # 8.49 X10^3/uL (2.7-7.7); Neutrophil % 72.8 % (47-70); Platelet Count 194 K/mm3 (150-450); RBC Distribution Width CV 13.3 % (11.6-14.6); RBC Distribution Width SD 45.1 fl (35.1-43.9); Red Blood Count 4.77 M/mm3 (4.6-6.2); White Blood Count 11.7 K/mm3 (4.4-11.0)
[2021-11-01 06:20] LABS: Anion Gap 6 (5-15); BUN 44 mg/dL (7-18); BUN/Creat Ratio 20.3 RATIO (10-20); Calcium,Total 8.8 mg/dL (8.5-10.1); Chloride 107 mmol/L (98-107); Creatinine, Serum 2.17 mg/dL (0.70-1.30); EST Glomerular Filtration Rate 34 mL/min (>60); Est Glom Filt Rate - Afr Amer 41 mL/min (>60); Estimated Creatinine Clearance 36.77 ml/min; Glucose 183 mg/dL (74-106); Potassium 4.4 mmol/L (3.5-5.1); Sodium Level 139 mmol/L (136-145); Thyroid Stim Hormone (TSH) 1.25 uIU/mL (0.358-3.74)
[2021-11-01] MEDS: Insulin Lispro 100 UNIT/ML INSULN.PEN SC (06:25)
[2021-11-01 07:01] LABS: Bedside Glucose 157 mg/dL (74-106)
[2021-11-01] MEDS: amLODIPine 10 MG Tablet PO (07:55)
[2021-11-01] MEDS: Metoprolol Tartrate 100 MG Tablet 200 MG PO (07:55)
[2021-11-01] MEDS: Enoxaparin 120 MG/0.8 ML Syringe SC (07:56)
--- NOTE | 2021-11-01 10:51 | PCM.PN.HOSP ---
Subjective Subjective Patient seen and examined. States shortness of breath is improved. Denies palpitations, chest pain. Underwent echocardiogram this morning. Objective Data Objective Data Vital Signs: Vital Signs Temp Pulse Resp BP Pulse Ox 97.6 F L 93 16 149/101 H 94 11/01/21 09:36 11/01/21 09:36 11/01/21 09:36 11/01/21 09:36 11/01/21 09:36 Oxygen Delivery Method Room Air Weight: 279 lb 15.793 oz Body Mass Index (BMI) 42.8 Intake & Output: Intake and Output for Last 24 Hours 10/30/21 10/31/21 11/01/21 23:59 23:59 23:59 Intake Total 200 / 200 Output Total 2200 / 2200 Balance -1999 / Lab / Micro Data Result Diagrams: 11/01/21 05:04 11/01/21 05:04 Labs: Laboratory Results - last 24 hr 11/01/21 00:03: WBC 11.6 H, RBC 4.70, Hgb 14.6, Hct 44.1, MCV 93.8, MCH 31.1, MCHC 33.1, RDW Std Deviation 45.6 H, RDW Coeff of Gus 13.3, Plt Count 184, MPV 12.5 H, Immature Gran % (Auto) 0.600, Neut % (Auto) 79.1 H, Lymph % (Auto) 12.5 L, [place] % (Auto) 7.1, Eos % (Auto) 0.3, Baso % (Auto) 0.4, Absolute Neuts (auto) 9.2 H, Absolute Lymphs (auto) 1.45, Nucleated RBC % 0 11/01/21 00:03: Sodium 140, Potassium 4.5, Chloride 106, Carbon Dioxide 25.0, Anion Gap 9, BUN 43 H, Creatinine 2.41 H, Estim Creat Clear Calc 33.11, Est GFR (MDRD) Af Amer 36 L, Est GFR (MDRD) Non-Af 30 L, BUN/Creatinine Ratio 17.8, Glucose 263 H, Calcium 8.6, Total Bilirubin 0.30, Direct Bilirubin 0.13, AST 15, ALT 34, Alkaline Phosphatase 73, Troponin I High Sens 50, Total Protein 6.8, Albumin 3.4, Globulin 3.4 11/01/21 00:03: B-Natriuretic Peptide 253.5 H 11/01/21 00:03: Magnesium 2.0 11/01/21 05:04: Hemoglobin A1c 7.0 H 11/01/21 05:04: WBC 11.7 H, RBC 4.77, Hgb 14.6, Hct 44.7, MCV 93.7, MCH 30.6, MCHC 32.7, RDW Std Deviation 45.1 H, RDW Coeff of Gus 13.3, Plt Count 194, MPV 12.8 H, Immature Gran % (Auto) 0.400, Neut % (Auto) 72.8 H, Lymph % (Auto) 19.4, [place] % (Auto) 6.9, Eos % (Auto) 0.1, Baso % (Auto) 0.4, Absolute Neuts (auto) 8.5 H, Absolute Lymphs (auto) 2.26, Nucleated RBC % 0 11/01/21 05:04: Sodium 139, Potassium 4.4, Chloride 107, Carbon Dioxide 26.0, Anion Gap 6, BUN 44 H, Creatinine 2.17 H, Estim Creat Clear Calc 36.77, Est GFR (MDRD) Af Amer 41 L, Est GFR (MDRD) Non-Af 34 L, BUN/Creatinine Ratio 20.3 H, Glucose 183 H, Calcium 8.8, TSH 1.25 11/01/21 06:20: POC Glucose 157 H Micro: Microbiology 11/01/21 00:10 Nasal Secretion SARS-CoV-2 Antigen (Rapid) - Final Radiography Diagnostic Testing: Radiology Impression Chest X-Ray 11/01/21 00:00 IMPRESSION: Hazy bibasilar airspace disease suspicious for pneumonia. Recommend short-term follow-up to resolution. at 0042 Reported and signed by: Ibrahima Vaughn MD Electronically Signed: Ibrahima Vaughn MD at 0:41 EDT , Physical Exam Const alert, oriented x3 and no apparent distress Orientation / Consciousness: awake, oriented to person, oriented to place and oriented to time Nutritional Appearance: obese HEENT normocephalic and moist oral mucous membranes Eyes PERRL, EOMs intact bilaterally and conjunctivae normal Neck no lymphadenopathy Resp normal respiratory effort and clear to auscultation bilaterally Cardio no murmurs Cardio Narrative: A. fib, intermittently tachycardic Peripheral Pulses: pulses 2+ throughout GI normal to inspection, nondistended, normoactive bowel sounds, non-tender and non-distended Extremity normal to inspection General Extremity: edema bilateral lower extremity Details: mild Skin no rashes or lesions noted Lesions: no lesions Rashes: no rashes Trauma: no lacerations or abrasions Neuro CN's II-XII intact bilaterally, no focal motor deficits, no sensory deficits noted and deep tendon reflexes 2+ bilaterally Psych mental status grossly normal and affect normal Assessment & Plan Assessment/Plan (1) Atrial fibrillation, new onset: PLAN: 1. New onset A. fib with RVR-echocardiogram pending. Therapeutic Lovenox. Metoprolol 100 mg twice daily. Rate currently controlled. Troponin negative. TSH, mag normal. Possible DC on oral anticoagulation if echocardiogram stable. 2. Acute heart failure, unknown subtype-patient received IV Lasix x1. Echocardiogram pending. 3. Acute kidney injury on chronic kidney disease stage IIIb-improved from prior. ROSHAN likely cardiorenal. 4. Type 2 diabetes [id number] with sliding scale insulin. Hemoglobin A1c 7. Does not appear to be on home regimen. Previously on glipizide. Will need Rx for glimepiride at discharge. 5. Hypertension-continue amlodipine, metoprolol. Lisinopril held due to acute kidney injury. 6. Tobacco dependence-encouraged cessation. 7. Morbid obesity-diet and lifestyle modifications encouraged. 8. Gout-on colchicine, held. DVT prophylaxis-therapeutic Lovenox This patient was seen by ITALO Martinez under the supervision of Dr. Dodson. Time spent examining patient, reviewing data and subsequent management of care: 14 Minutes
[2021-11-01 11:31] LABS: Bedside Glucose 130 mg/dL (74-106)
--- NOTE | 2021-11-01 11:40 | CASEMGMT ---
RN CM Face to Face with patient for initial transition planning/care coordination assessment. RN CM introduced self and role at [facility]. Patient lying in bed, alert and oriented. Patient willing to participate in assessment and is able to answer all questions appropriately. Care providers, pharmacy, and demographics verified. Patient wishes to discharge home, denies need for home health at this time. Patient states he has no further needs or concerns at this time. CM to follow for discharge planning needs that may arise. PCP: [facility] Specialists: none Preferred Pharmacy: [facility] Insurance: [employer] Prescription Benefit: yes Living Will/HPOA: none LNOK: daughter Living Arrangements: Patient states he lives with daughter in a single story home with 3 steps and railing to enter the home. Patient states he is independent at home. Transportation: self, daughter DME/HHC: [facility] states he has walker, raised toilet, and pulse ox at home. No previous HHC or SNF. Disposition Plan: Patient to discharge home with family support and follow-up plans in place. Deanne ZHOU, RN, CM
--- NOTE | 2021-11-01 15:24 | PCM.DC ---
Discharge Instructions Diet Discharge Diet: Low fat / Low cholesterol and Carb Control Diet Activity Discharge Activity: Return to Normal Activity Dressing / Incision Call your doctor if you observe: Shortness of breath, Dizziness and Chest pain Follow Up Care Test Results: Test results from this visit will be discussed in further detail at your follow-up appointment, if applicable. Discharge Plan Admission Admit Date/Time: 11/01/21 00:56 Primary Reason for Your Visit: A.fib Attending Provider: Boyd Dodson Primary Care Provider: Paolo Altman Instructions Additional Instructions / Restrictions: You will need a repeat BMP to assess kidney function in 1 week which can be completed by your primary care provider. Discharge Orders/Prescriptions Prescriptions: New metoprolol tartrate 100 mg Tablet 100 mg PO BID 30 Days Qty: 60 RF: 0 Eliquis 5 mg tablet 5 mg PO BID Qty: 60 RF: 0 furosemide [Lasix] 20 mg tablet 20 mg PO DAILY Qty: 30 RF: 0 Continued Lisinopril 40 mg PO/SL DAILY RF: 0 amlodipine 10 mg tablet 10 mg PO DAILY RF: 0 colchicine 0.6 mg tablet 0.6 mg PO QODAY RF: 0 Discontinued Metoprolol Tartrate 200 mg PO/SL DAILY RF: 0 Referrals / Follow Up: Cardiology, Primary [facility] [Other] - In 1 Week Paolo Altman MD [Primary Care Provider] - In 1 Week Disposition Disposition (needs filled in before D/C Order can be placed): Home, Self Care
--- NOTE | 2021-11-01 15:31 | PCM.DC.SUM ---
Documented by User: Lauren Valenzuela NP, A&P TECHNICIAN-C 11/01/21 15:48 Providers Date of Admission: 11/01/21 Date of Discharge: 11/01/21 Primary Care Physician: Dr. Paolo Altman MD Reason For Visit: AFIB WITH RVR Diagnosis Discharge Diagnosis (1) Atrial fibrillation, new onset: Status: Acute Code(s): I48.91 - Unspecified atrial fibrillation Medications at Discharge Home Medications Lisinopril 40 mg PO/SL DAILY 06/21/19 amlodipine 10 mg PO DAILY 10/31/21 colchicine 0.6 mg PO QODAY 10/31/21 apixaban [Eliquis] 5 mg PO BID #60 tab 11/01/21 furosemide [Lasix] 20 mg PO DAILY #30 tab 11/01/21 glimepiride 2 mg PO DAILY #30 tab 11/01/21 metoprolol tartrate 100 mg PO BID 30 Days #60 tab 11/01/21 Hospital Course Operations None Procedures 2-D Echocardiogram Summary of Care Provided Hospital Course: Patient is a 56-year-old male admitted 11/01/2021 due to shortness of breath. 1. New onset A. fib with RVR-echocardiogram demonstrates an EF of 50 to 55%. Metoprolol 100 mg twice daily. Rate controlled. Troponin negative. TSH, mag normal. Discharged on Eliquis 5 mg twice daily. 2. Acute heart failure with preserved ejection fraction-patient received IV Lasix x1. Echocardiogram demonstrates an EF of 50 to 55%. Discharged on Lasix 20 mg daily. Will need repeat BMP in 1 week and outpatient follow-up with cardiology. 3. Acute kidney injury on chronic kidney disease stage IIIb-improved from prior. ROSHAN likely cardiorenal. Repeat BMP as outpatient as noted above. 4. Type 2 diabetes mellitus-Hemoglobin A1c 7. Does not appear to be on home regimen. Previously on glipizide. Rx for glimepiride at discharge. 5. Hypertension-continue amlodipine, metoprolol, lisinopril. 6. Tobacco dependence-encouraged cessation. 7. Morbid obesity-diet and lifestyle modifications encouraged. 8. Gout-on colchicine. May need adjustment pending further renal function assessment as outpatient. Physical Exam Const alert, oriented x3 and no apparent distress Orientation / Consciousness: awake, oriented to person, oriented to place and oriented to time Nutritional Appearance: obese HEENT normocephalic and moist oral mucous membranes Eyes PERRL, EOMs intact bilaterally and conjunctivae normal Neck no lymphadenopathy Resp normal respiratory effort and clear to auscultation bilaterally Cardio no murmurs Cardio Narrative: A. fib, rate controlled Peripheral Pulses: pulses 2+ throughout GI normal to inspection, nondistended, normoactive bowel sounds, non-tender and non-distended Extremity normal to inspection General Extremity: edema bilateral lower extremity Details: mild Skin no rashes or lesions noted Lesions: no lesions Rashes: no rashes Trauma: no lacerations or abrasions Neuro CN's II-XII intact bilaterally, no focal motor deficits, no sensory deficits noted and deep tendon reflexes 2+ bilaterally Psych mental status grossly normal and affect normal Patient seen and examined prior to discharge. Physical assessment as noted above. Patient is stable for discharge with follow up recommendations as noted above. This patient was seen by ITALO Martinez under the supervision of Dr. Dodson. Time spent examining patient, reviewing data and subsequent management of care: 16 Minutes Weight / BMI Weight Weight: 279 lb 15.793 oz Body Mass Index (BMI) 42.8 ABG / Lab / Microbiology Data Result Diagrams: 11/01/21 05:04 11/01/21 05:04 Laboratory: Laboratory Results - last 24 hr 11/01/21 00:03: WBC 11.6 H, RBC 4.70, Hgb 14.6, Hct 44.1, MCV 93.8, MCH 31.1, MCHC 33.1, RDW Std Deviation 45.6 H, RDW Coeff of Gus 13.3, Plt Count 184, MPV 12.5 H, Immature Gran % (Auto) 0.600, Neut % (Auto) 79.1 H, Lymph % (Auto) 12.5 L, [place] % (Auto) 7.1, Eos % (Auto) 0.3, Baso % (Auto) 0.4, Absolute Neuts (auto) 9.2 H, Absolute Lymphs (auto) 1.45, Nucleated RBC % 0 11/01/21 00:03: Sodium 140, Potassium 4.5, Chloride 106, Carbon Dioxide 25.0, Anion Gap 9, BUN 43 H, Creatinine 2.41 H, Estim Creat Clear Calc 33.11, Est GFR (MDRD) Af Amer 36 L, Est GFR (MDRD) Non-Af 30 L, BUN/Creatinine Ratio 17.8, Glucose 263 H, Calcium 8.6, Total Bilirubin 0.30, Direct Bilirubin 0.13, AST 15, ALT 34, Alkaline Phosphatase 73, Troponin I High Sens 50, Total Protein 6.8, Albumin 3.4, Globulin 3.4 11/01/21 00:03: B-Natriuretic Peptide 253.5 H 11/01/21 00:03: Magnesium 2.0 11/01/21 05:04: Hemoglobin A1c 7.0 H 11/01/21 05:04: WBC 11.7 H, RBC 4.77, Hgb 14.6, Hct 44.7, MCV 93.7, MCH 30.6, MCHC 32.7, RDW Std Deviation 45.1 H, RDW Coeff of Gus 13.3, Plt Count 194, MPV 12.8 H, Immature Gran % (Auto) 0.400, Neut % (Auto) 72.8 H, Lymph % (Auto) 19.4, [place] % (Auto) 6.9, Eos % (Auto) 0.1, Baso % (Auto) 0.4, Absolute Neuts (auto) 8.5 H, Absolute Lymphs (auto) 2.26, Nucleated RBC % 0 11/01/21 05:04: Sodium 139, Potassium 4.4, Chloride 107, Carbon Dioxide 26.0, Anion Gap 6, BUN 44 H, Creatinine 2.17 H, Estim Creat Clear Calc 36.77, Est GFR (MDRD) Af Amer 41 L, Est GFR (MDRD) Non-Af 34 L, BUN/Creatinine Ratio 20.3 H, Glucose 183 H, Calcium 8.8, TSH 1.25 11/01/21 06:20: POC Glucose 157 H 11/01/21 11:24: POC Glucose 130 H Microbiology: Microbiology 11/01/21 00:10 Nasal Secretion SARS-CoV-2 Antigen (Rapid) - Final Radiography Diagnostic Testing: Radiology Impression Chest X-Ray 11/01/21 00:00 IMPRESSION: Hazy bibasilar airspace disease suspicious for pneumonia. Recommend short-term follow-up to resolution. at 0042 Reported and signed by: Ibrahima Vaughn MD Electronically Signed: Ibrahima Vaughn MD at 0:41 EDT Reading Location ID and State: [facility] / [place] Tel , Service support , Echocardiogram 11/01/21 01:47 Interpretation Summary Technically difficult study. The estimated ejection fraction is 50-55 %. The left atrium is mildly enlarged. Trivial mitral valve insufficiency. Ordering Physician: Sergio Altamirano Referring Physician: Paolo Altman Performed By: Shayy Velazquez, ADOLFO, RVT D/C Instructions Discharge Diet: Low fat / Low cholesterol and Carb Control Diet Call your doctor if you observe: Shortness of breath, Dizziness and Chest pain Meaningful Use Info Meaningful Use Diagnoses (Choose all that apply): CHF CHF TAMY/ARB ordered at discharge?: Yes Documented LVEF (%): 50 Discharge Plan Admission Admit Date/Time: 11/01/21 00:56 Primary Reason for Your Visit: A.fib Attending Provider: Boyd Dodson Primary Care Provider: Paolo Altman Instructions Additional Instructions / Restrictions: You will need a repeat BMP to assess kidney function in 1 week which can be completed by your primary care provider. Discharge Orders/Prescriptions Prescriptions: New metoprolol tartrate 100 mg Tablet 100 mg PO BID 30 Days Qty: 60 RF: 0 Eliquis 5 mg tablet 5 mg PO BID Qty: 60 RF: 0 furosemide [Lasix] 20 mg tablet 20 mg PO DAILY Qty: 30 RF: 0 glimepiride 2 mg tablet 2 mg PO DAILY Qty: 30 RF: 0 Continued Lisinopril 40 mg PO/SL DAILY RF: 0 amlodipine 10 mg tablet 10 mg PO DAILY RF: 0 colchicine 0.6 mg tablet 0.6 mg PO QODAY RF: 0 Discontinued Metoprolol Tartrate 200 mg PO/SL DAILY RF: 0 Referrals / Follow Up: Cardiology, [facility] [Other] - In 1 Week Paolo Altman MD [Primary Care Provider] - In 1 Week Disposition Disposition (needs filled in before D/C Order can be placed): Home, Self Care Documented by User: Dr. Boyd Dodson DO 11/01/21 15:50 Providers Date of Admission: 11/01/21 Reason For Visit: AFIB WITH RVR Medications at Discharge Home Medications Lisinopril 40 mg PO/SL DAILY 06/21/19 amlodipine 10 mg PO DAILY 10/31/21 colchicine 0.6 mg PO QODAY 10/31/21 apixaban [Eliquis] 5 mg PO BID #60 tab 11/01/21 furosemide [Lasix] 20 mg PO DAILY #30 tab 11/01/21 glimepiride 2 mg PO DAILY #30 tab 11/01/21 metoprolol tartrate 100 mg PO BID 30 Days #60 tab 11/01/21 Hospital Course Operations None Procedures 2-D Echocardiogram Summary of Care Provided Minutes Spent on Discharge: 32 Hospital Course: This is a 56-year-old male presents with progressive shortness of breath. Chest x-ray showed some perivascular congestion consistent with CHF. Patient was noted to be in A. fib with RVR and did receive a dose of IV diltiazem. Patient became rate controlled. Patient was taking 200 mg of metoprolol tartrate daily at home. Is recommended that that be changed to 100 twice daily. Given his atrial fibrillation, he is at risk for stroke and will be discharged with apixaban. Did discuss with the patient about the indication for anticoagulation and the risk of stroke with atrial fibrillation. He expressed understanding of that. Given the pulmonary vascular congestion patient also be discharged on furosemide. Patient to follow-up with cardiology as outpatient. Physical Exam Const alert Resp normal respiratory effort, no retractions, no use of accessory muscles and clear to auscultation bilaterally Cardio regular rate, regular rhythm, S1 normal heart sound and S2 normal heart sound GI normal to inspection, nondistended, normoactive bowel sounds, soft to palpation, non-tender and non-distended Extremity normal to inspection Neuro Sensorium / Orientation: awake ABG / Lab / Microbiology Data Result Diagrams: 11/01/21 05:04 11/01/21 05:04 Discharge Plan Admission Admit Date/Time: 11/01/21 00:56 Primary Reason for Your Visit: Acarlyn Attending Provider: Boyd Dodson Primary Care Provider: Paolo Altman Instructions Additional Instructions / Restrictions: You will need a repeat BMP to assess kidney function in 1 week which can be completed by your primary care provider. Discharge Orders/Prescriptions Prescriptions: New metoprolol tartrate 100 mg Tablet 100 mg PO BID 30 Days Qty: 60 RF: 0 Eliquis 5 mg tablet 5 mg PO BID Qty: 60 RF: 0 furosemide [Lasix] 20 mg tablet 20 mg PO DAILY Qty: 30 RF: 0 glimepiride 2 mg tablet 2 mg PO DAILY Qty: 30 RF: 0 Continued Lisinopril 40 mg PO/SL DAILY RF: 0 amlodipine 10 mg tablet 10 mg PO DAILY RF: 0 colchicine 0.6 mg tablet 0.6 mg PO QODAY RF: 0 Discontinued Metoprolol Tartrate 200 mg PO/SL DAILY RF: 0 Referrals / Follow Up: Cardiology, [facility] [Other] - In 1 Week Paolo Altman MD [Primary Care Provider] - In 1 Week Disposition Disposition (needs filled in before D/C Order can be placed): Home, Self Care Charges/Coding Visit Charges OBSV E&M: 10569 Observ/hosp same date L3
--- NOTE | 2021-11-01 15:42 | CASEMGMT ---
Addendum entered by Deanne Meek 11/01/21 15:53: [facility] to check Eliquis coverage/co-pay and per tech, med requires prior auth. Call to [facility] and prior auth completed at this time. , effective 11/01/21-11/01/22. Call back to [facility] pharmacy to have them re-run med. Per tech, pt's co-pay is $40. Eryn HASTINGS CM Original Note: Pt provided with Eliquis 30 day free trial card and $10 co-pay card with instructions, voices understanding. Pt voices no further questions/concerns/needs. Eryn HASTINGS CM
== END 2021-11-01 16:22 | disposition home or self-care (01) | DRG 308 ==
LOC: ED 11-01 00:49 → PCU 11-01 03:20
PROVIDERS: Admitting Provider Hospitalist; Emergency Provider Emergency Medicine; PCP Family Medicine
DX: I48.91 Unspecified atrial fibrillation (principal); I50.31 Acute diastolic (congestive) heart failure; N17.9 Acute kidney failure, unspecified; Z68.41 Body mass index [BMI] 40.0-44.9, adult; E11.22 Type 2 diabetes mellitus with diabetic chronic kidney disease; E11.65 Type 2 diabetes mellitus with hyperglycemia; E66.01 Morbid (severe) obesity due to excess calories; N18.32 Chronic kidney disease, stage 3b; F17.290 Nicotine dependence, other tobacco product, uncomplicated; M10.9 Gout, unspecified; E78.5 Hyperlipidemia, unspecified; I12.9 Hypertensive chronic kidney disease with stage 1 through stage 4 chronic kidney disease, or unspecified chronic kidney disease; Z79.899 Other long term (current) drug therapy
CPT/HCPCS: 36415; 71045; 80048; 80076; 82962; 83036; 83735; 83880; 84443; 84484; 85025; 87811; 93005; 93306; 99285; Q9957; A4216; C8929; J1940

== ENCOUNTER 2022-07-02 13:02 | Outpatient (CLI) | payer OTHER, SELFPAY ==
--- NOTE | 2022-07-02 12:00 | CT_ITS ---
We are attempting to reach an attending provider to discuss findings. An addendum with communication details will be sent when the communication is complete. EXAM: CT ANGIOGRAPHY HEAD AND NECK WITH INTRAVENOUS CONTRAST CLINICAL INDICATION: Neuro deficit, acute, stroke suspected TECHNIQUE: [place]/head and neck CT angiography protocol performed with intravenous contrast. This CT exam was performed using one or more of the following dose reduction techniques: automated exposure control, adjustment of the mA and/or kV according to patient size, and/or use of iterative reconstruction technique. This report was created using [employer] report [employer] technology. MIP reconstructed images were created and reviewed. CONTRAST: [id number] 100ML COMPARISON: None. FINDINGS: HEAD: RIGHT ANTERIOR CEREBRAL ARTERY: Normal. No significant stenosis at the visualized segments. Anterior communicating artery is present. No aneurysm. RIGHT MIDDLE CEREBRAL ARTERY: Normal. No significant stenosis at the visualized segments. No aneurysm. RIGHT POSTERIOR CEREBRAL ARTERY: Normal. No occlusion or significant stenosis. No aneurysm. RIGHT INTRACRANIAL INTERNAL CAROTID ARTERY: Normal. No significant stenosis. No dissection or occlusion. RIGHT INTRACRANIAL VERTEBRAL ARTERY: Normal. No significant stenosis. No dissection or occlusion. LEFT ANTERIOR CEREBRAL ARTERY: Normal. No significant stenosis at the visualized segments. No aneurysm. LEFT MIDDLE CEREBRAL ARTERY: Normal. No significant stenosis at the visualized segments. No aneurysm. LEFT POSTERIOR CEREBRAL ARTERY: Normal. No occlusion or significant stenosis. No aneurysm. LEFT INTRACRANIAL INTERNAL CAROTID ARTERY: Normal. No significant stenosis. No dissection or occlusion. LEFT INTRACRANIAL VERTEBRAL ARTERY: Dominant left vertebral artery is noted. No significant stenosis. No dissection or occlusion. BASILAR ARTERY: Normal. No significant stenosis. No aneurysm. NECK: RIGHT COMMON CAROTID ARTERY: Normal. No significant stenosis. No dissection or occlusion. RIGHT EXTRACRANIAL INTERNAL CAROTID ARTERY: Normal. No significant stenosis. No dissection or occlusion. RIGHT EXTERNAL CAROTID ARTERY: Normal. No occlusion. RIGHT EXTRACRANIAL VERTEBRAL ARTERY: Cervical portion of the right vertebral artery is quite small in size which appears to be on a congenital level and terminates in small inferior cerebellar branches. No significant stenosis. No dissection or occlusion. LEFT COMMON CAROTID ARTERY: Normal. No significant stenosis. No dissection or occlusion. LEFT EXTRACRANIAL INTERNAL CAROTID ARTERY: Localized 13 mm outpouching from the distal portion of the extracranial left internal carotid artery indicative of a localized pseudoaneurysm. No significant stenosis. No dissection or occlusion. LEFT EXTERNAL CAROTID ARTERY: Normal. No occlusion. LEFT EXTRACRANIAL VERTEBRAL ARTERY: Normal. GREAT VESSELS OF AORTIC ARCH: Unremarkable as visualized. Normal anatomy, patent. LUNG APICES: Prominent air space opacification of the right lung indicative of pneumonia. HEAD and NECK: BONES/JOINTS: Normal. No discrete lytic or blastic abnormalities. SOFT TISSUES: Normal. CAROTID STENOSIS REFERENCE USING NASCET CRITERIA: % ICA stenosis = (1 - narrowest ICA diameter/diameter of distal cervical ICA) x 100. Mild - <50% stenosis. Moderate - 50-69% stenosis. Severe - 70-94% stenosis. Near occlusion - 95-99% stenosis. Occluded - 100% stenosis.
--- NOTE | 2022-07-02 12:00 | CT_ITS ---
We are attempting to reach an attending provider to discuss findings. An addendum with communication details will be sent when the communication is complete. EXAM: CT HEAD WITHOUT INTRAVENOUS CONTRAST CLINICAL INDICATION: Neuro deficit, acute, stroke suspected TECHNIQUE: Multiple axial images were obtained of the head without intravenous contrast. This CT exam was performed using one or more of the following dose reduction techniques: automated exposure control, adjustment of the mA and/or kV according to patient size, and/or use of iterative reconstruction technique. This report was created using [employer] report [employer] technology. COMPARISON: None. FINDINGS: BRAIN AND EXTRA-AXIAL SPACES: Areas of diminished white matter density noted within both cerebral hemispheres suggestive of chronic microvascular change. Prominence of the cortical sulci and ventricles related to volume loss change. No intra- or extra-axial hemorrhage. No evidence of acute infarct. No intracranial mass or mass effect. There is preservation of the tang/white matter interface. Posterior fossa structures are unremarkable. Basal cisterns are patent. BONES/JOINTS: Normal. No discrete lytic or blastic abnormalities. SINUSES: Mucosal thickening of the paranasal sinuses noted. MASTOID AIR CELLS: Normal. Clear. ORBITS: Visualized globes, extraocular muscles, optic nerves and retrobulbar fat appear unremarkable.
== END 2022-07-02 23:59 | disposition home or self-care (01) ==
LOC: ED 07-05 13:02
PROVIDERS: PCP Family Medicine; Visit Provider Emergency Medicine
DX: Z53.21 Procedure and treatment not carried out due to patient leaving prior to being seen by health care provider (principal)
CPT/HCPCS: 70450; 70496; 70498; J7030; Q9967; A4216

== ENCOUNTER 2022-11-04 12:55 | Emergency (ER) | payer OTHER, SELFPAY ==
[2022-11-04 12:56] VITALS: BP 129/103; PULSE 103; RESP 20; TEMP 36.4; O2SAT 96; BMI 38.9
--- NOTE | 2022-11-04 13:11 | EKG12_ITS ---
Test Reason : CP/SOB Blood Pressure : / mmHG Vent. Rate : 102 BPM Atrial Rate : 102 BPM P-R Int : 144 ms QRS Dur : 078 ms QT Int : 316 ms P-R-T Axes : 083 015 031 degrees QTc Int : 411 ms Sinus tachycardia with Premature atrial complexes Otherwise normal ECG Confirmed by VALERIA DOMINGUEZ, JEFF ([id number]), editor sound JAYJAY DILLON ([id number]) on 11/06/2022 11:17:00 AM Referred By: JEAN CARLOS Confirmed By:STEPHANE SHAW MD
--- NOTE | 2022-11-04 13:11 | RAD_ITS ---
HISTORY: chest pain. TECHNIQUE: XR Chest 1 View. COMPARISON: 11/01/2021. FINDINGS: CARDIOMEDIASTINAL BORDERS: Cardiac silhouette within normal limits in size. Mediastinal contour unchanged with calcification of the aortic knob. LUNGS: Mild scarring in the lung bases. PLEURA: No pleural effusion or pneumothorax seen. OSSEOUS STRUCTURES: Unremarkable. RAD/Chest 1 View (Portable) IMPRESSION: No acute cardiopulmonary process identified. Electronically Signed: Amy Peters MD at 13:51 EDT ,
[2022-11-04 13:12] VITALS: O2SAT 95
[2022-11-04 13:22] LABS: Absolute Lymphocyte Count 1.03 X10^3/uL (0.83-4.51); Absolute Neutrophil Count 13.3 X10^3/uL (2.0-7.7); Basophil# 0.03 X10^3/uL; Basophil% 0.2 % (0-1); Hematocrit 37.8 % (40-54); Hemoglobin 12.5 g/dL (13.0-16.5); Lymphocyte # 1.03 X10^3/ul (0.83-4.51); Lymphocyte % 6.2 % (19-41); Mean Corp Hgb Conc 33.1 g/dL (32-36); Mean Corpuscular Hgb 29.3 pg (27.0-32.0); Mean Corpuscular Volume 88.7 fL (80-94); Mean Platelet Vol. 10.8 fl (6.2-12.0); Monocyte# 2.12 X10^3/uL; Monocyte% 12.8 % (0-10); NRBC Flagged by Analyzer 0 % (0-5); Neutrophil # 13.25 X10^3/uL (2.7-7.7); Neutrophil % 79.8 % (47-70); POSITIVE DIFFERENTIAL YES; Platelet Count 314 K/mm3 (150-450); RBC Distribution Width CV 14.6 % (11.6-14.6); RBC Distribution Width SD 47.1 fl (35.1-43.9); Red Blood Count 4.26 M/mm3 (4.6-6.2); White Blood Count 16.6 K/mm3 (4.4-11.0)
--- NOTE | 2022-11-04 13:22 | EDS_ITS ---
HPI History of Present Illness Chief Complaint: General Illness Narrative Narrative: 57-year-old male presenting with shortness of breath. He states has been very severe for the last couple of days. He reports that he had a lot of tremors on but did not get seen for these. He states has been treated for tremors over the last month. Patient states that after this last episode of tremors he started to feel short of breath. He does report he might of had chills. But he does not report fever, chills. He states he can only walk short distances because he is so short of breath. Patient does have history of A-fib and is on Eliquis. He takes metoprolol for rate control. He sees cardiology at [facility]. Patient also reports that he is developed diarrhea. He denies black or bloody stools. Patient states that today he developed left upper chest pain. It hurts worse when he moves his left arm. He states it does hurt to touch. He denies any trauma. PFSH PFSH Medical History Afib CHF (congestive heart failure) Diabetes Diabetes Hyperlipidemia Hypertension Kidney disease Smoker Home Medications Lisinopril 40 mg PO/SL DAILY blood pressure 06/21/19 [History Last Taken Unknown] amlodipine 10 mg tablet 10 mg PO DAILY blood pressure 10/31/21 [History Last Taken Unknown] apixaban 5 mg tablet (Eliquis) 5 mg PO BID #60 tabs 11/01/21 [Rx Last Taken Unknown] glimepiride 2 mg tablet 2 mg PO DAILY #30 tabs 11/01/21 [Rx Last Taken Unknown] metoprolol tartrate 100 mg tablet 100 mg PO BID 30 days #60 tabs 11/01/21 [Rx Last Taken Unknown] Allergy/AdvReac Type Severity Reaction Status Date / Time Penicillins [PCN] Allergy Other Verified 11/04/22 13:00 Family History Other Heart disease Surgical History History of carpal tunnel surgery Social History Smoking Status: Former smoker ROS ROS ED Constitutional Constitutional ED: Reports other Details: Tremors ; Denies chills or fever(s) Eyes Eyes: Denies change in vision or diplopia ENT ENT ED: Denies sore throat Cardiovascular Cardiovascular: Reports chest pain Respiratory/Chest Respiratory/Chest: Reports cough and dyspnea Gastrointestinal Gastrointestinal: Reports abdominal pain, nausea and vomiting Genitourinary Genitourinary ED: Denies dysuria or hematuria Musculoskeletal Musculoskeletal: Denies arthralgias or back pain Integumentary Denies abscess Neurologic Neurologic: Denies headache(s) or paresthesias EXAM Physical Exam Const Vital Signs: 11/04/22 12:56 11/04/22 13:02 11/04/22 13:12 Temperature 97.6 F L Temperature Source Temporal Pulse Rate 103 H Respiratory Rate 20 H Respiratory Effort Normal Non-Labored Short of Breath Respiratory Pattern Tachypnea Blood Pressure 129/103 H Blood Pressure Mean 111 Pulse Ox 96 95 Oxygen Delivery Method Room Air Room Air 11/04/22 14:03 11/04/22 16:06 Temperature 98.8 F Temperature Source Oral Pulse Rate 89 74 Respiratory Rate 24 H 26 H Respiratory Effort Respiratory Pattern Blood Pressure 116/99 H 106/67 Blood Pressure Mean 104 80 Pulse Ox 98 97 Oxygen Delivery Method Room Air Room Air Positive obese General Appearance ED: NAD Nutritional Appearance: obese HEENT Reports moist mucous membranes Eyes PERRL and EOMs intact bilaterally Chest Wall Chest Narrative: Tenderness palpation left upper chest wall. No ecchymosis or swelling. Equal symmetric breath sounds and chest wall rise. Resp normal respiratory effort and clear to auscultation bilaterally Auscultation: Negative for rales, rhonchi or wheezes Cardio regular rate and regular rhythm GI normal to inspection, nondistended, normoactive bowel sounds GI Narrative: Benign abdomen Extremity normal to inspection Neuro oriented x3 and CN's II-XII intact bilaterally Sensorium / Orientation: alert Motor Exam: strength 5/5 throughout Psych mental status grossly normal Skin no rashes or lesions noted MDM MDM MDM Narrative Medical decision making narrative: Patient presenting with right-sided chest pain. He had a recent admission for this when he was in A-fib. His echocardiogram showed an EF of 50 to 55%. CBC today shows a white blood cell count of 16.6. Hemoglobin macular stable. Platelets are normal. Renal function is at baseline. Electrolytes unremarkable. LFTs are slightly elevated with an AST of 454, ALT 113, alk phosphatase 309. Bilirubin is normal. Patient is not having right upper quadrant pain. High-sensitivity troponin is 10. Delta troponin is 9. EKG sinus rhythm with a rate of 86 bpm without sign of ischemic change or dysrhythmia on my interpretation there is no significant interval change. Chest x-ray my interpretation shows no acute cardiopulmonary process. Radiologist are persistent agrees patient currently on Eliquis so PE is unlikely. Given patient's negative work-up I believe he is safe for discharge home. I did also check a COVID and a flu swab today and these were negative. Impression: 1. dyspnea 2. Chest pain 3. Weakness Lab Data Attestation: I reviewed the patient's lab results. Labs: Laboratory Results - last 24 hr 11/04/22 11/04/22 11/04/22 13:05 13:05 15:28 WBC 16.6 H RBC 4.26 L Hgb 12.5 L Hct 37.8 L MCV 88.7 MCH 29.3 MCHC 33.1 RDW Std Deviation 47.1 H RDW Coeff of Gus 14.6 Plt Count 314 MPV 10.8 Immature Gran % (Auto) 1.000 H Neut % (Auto) 79.8 H Lymph % (Auto) 6.[address] [place] % (Auto) 12.8 H Eos % (Auto) 0.0 Baso % (Auto) 0.2 Absolute Neuts (auto) 13.3 H Absolute Lymphs (auto) 1.03 Nucleated RBC % 0 Differential Comment SCANNED Diff Path Review May foll Sodium 133 L Potassium 4.4 Chloride 105 Carbon Dioxide 19.0 L Anion Gap 9 BUN 37 H Creatinine 2.16 H Estim Creat Clear Calc 35.28 Est GFR (MDRD) Af Amer 41 L Est GFR (MDRD) Non-Af 34 L BUN/Creatinine Ratio 17.1 Glucose 107 H Calcium 9.6 Total Bilirubin 0.70 AST 454 H ALT 113 H Alkaline Phosphatase 309 H Troponin I High Sens 10 9 Total Protein 7.1 Albumin 2.2 L Globulin 4.9 H Albumin/Globulin Ratio 0.4 L Lipase 128 Radiography Diagnostic Testing: Clinical Impression(s) from Imaging Studies Chest X-Ray 11/04/22 13:11 IMPRESSION: No acute cardiopulmonary process identified. Electronically Signed: Amy Peters MD at 13:51 EDT , Discharge Plan Triage Chief Complaint: General Illness ED Provider: Burak Flores Dx/Rx/DC Orders Prescriptions: No Action Lisinopril 40 mg PO/SL DAILY amlodipine 10 mg tablet 10 mg PO DAILY metoprolol tartrate 100 mg Tablet 100 mg PO BID 30 Days Qty: 60 0RF Eliquis 5 mg tablet 5 mg PO BID Qty: 60 0RF glimepiride 2 mg tablet 2 mg PO DAILY Qty: 30 0RF Primary Care Provider: Paolo Altman Referrals: Paolo Altman MD [Primary Care Provider] -
[2022-11-04 13:25] LABS: Differential Indicated SCAN CRITERIA MET
[2022-11-04 13:39] LABS: ALB/GLOB Ratio 0.4 RATIO (0.9-2.4); AST(SGOT) 454 U/L (15-37); Alanine Aminotransfer ALT/SGPT 113 U/L (16-61); Albumin, Serum 2.2 g/dL (3.2-5.0); Alkaline Phosphatase 309 U/L (45-117); Anion Gap 9 (5-15); BUN 37 mg/dL (7-18); BUN/Creat Ratio 17.1 RATIO (10-20); Calcium,Total 9.6 mg/dL (8.5-10.1); Chloride 105 mmol/L (98-107); Creatinine, Serum 2.16 mg/dL (0.70-1.30); EST Glomerular Filtration Rate 34 mL/min (>60); Est Glom Filt Rate - Afr Amer 41 mL/min (>60); Estimated Creatinine Clearance 35.28 ml/min; Globulin 4.9 g/dL (2.2-4.2); Glucose 107 mg/dL (74-106); Lipase 128 U/L (73-393); Potassium 4.4 mmol/L (3.5-5.1); Protein, Total 7.1 g/dL (6.4-8.2); Sodium Level 133 mmol/L (136-145); Troponin-I HS (w/2H Reflex) 10 pg/mL (3.0-78.0)
[2022-11-04 14:03] VITALS: BP 116/99; PULSE 89; RESP 24; TEMP 37.1; O2SAT 98
[2022-11-04 14:04] LABS: Differential Comment SCANNED
[2022-11-04] MEDS: 0.9% Normal Saline 1,000 ML 999 ML IV (15:10)
[2022-11-04 15:17] LABS: Reflex Troponin-HS? (from REC) Y
[2022-11-04 15:54] LABS: Troponin-I HS 9 pg/mL (3.0-78.0)
[2022-11-04 16:06] VITALS: BP 106/67; PULSE 74; RESP 26; O2SAT 97
[2022-11-04 16:36] VITALS: BP 113/80; PULSE 89; RESP 16; O2SAT 98
[2022-11-06 13:09] LABS: Pathologist Review Reviewed
== END 2022-11-04 16:37 | disposition home or self-care (01) ==
PROVIDERS: Emergency Provider Student in an Organized Health Care Education/Training Program; PCP Family Medicine; Visit Provider Student in an Organized Health Care Education/Training Program
DX: R06.02 Shortness of breath (principal); I11.0 Hypertensive heart disease with heart failure; I50.9 Heart failure, unspecified; E11.9 Type 2 diabetes mellitus without complications; Z87.891 Personal history of nicotine dependence; E78.5 Hyperlipidemia, unspecified; Z20.822 Contact with and (suspected) exposure to COVID-19
CPT/HCPCS: 71045; 80053; 83690; 84484; 85025; 87428; 93005; 96360; 99284; J7030; A4216